=== PATIENT | female | born 1935 | race Caucasian/White ===

== ENCOUNTER 2016-07-18 17:20 | Emergency (ER) | payer MEDICARE, OTHER ==
[~2016-07-18 17:20] MED LIST: ASPIRIN PO; BACDS PO; CAFFEINE PO; CYANO1000T PO; DURICEF PO; EXELON1 EACH TOP; EXELON9.5T TOP; FISH OIL1200 MG PO; FOLIC PO; LOP25 PO; NAMENXR28 PO; PROTONIX PO; PYR200 PO; SIN25 PO; TOF50 PO; VITAMIN D31000 UNIT PO; [UNRECOGNIZED DRUG - OTHER] PO
[2016-07-19] MEDS ORDERED: K500 PO (17:25)
[2016-07-19] MEDS ORDERED: LOP25 PO (17:25)
[2016-07-19] MEDS ORDERED: EXELON1 EACH TOP (17:25)
[2016-07-19] MEDS ORDERED: SIN25 PO (17:25)
[2016-07-19] MEDS ORDERED: TOF50 PO (17:25)
[2016-07-19] MEDS ORDERED: CYANO1000T PO (17:26)
[2016-07-19] MEDS ORDERED: FISH OIL1200 MG PO (17:26)
[2016-07-19] MEDS ORDERED: HALF81 PO (17:26)
[2016-07-19] MEDS ORDERED: VITAMIN D31000 UNIT PO (17:26)
[2016-07-19] MEDS ORDERED: SEROQUEL50 MG PO (17:26)
[2016-07-19] MEDS ORDERED: FOLIC PO (17:27)
== END 2016-07-18 18:04 | disposition home or self-care (01) ==
LOC: ER 17:20
PROC: 0XQCXZZ Repair Left Elbow Region, External Approach (ICD-10-PCS; principal; 2016-07-18)
DX: S51.012A Laceration without foreign body of left elbow, initial encounter (principal); F03.90 Unspecified dementia, unspecified severity, without behavioral disturbance, psychotic disturbance, mood disturbance, and anxiety; Z88.0 Allergy status to penicillin; Z88.5 Allergy status to narcotic agent; Z88.7 Allergy status to serum and vaccine; Z79.899 Other long term (current) drug therapy; W01.0XXA Fall on same level from slipping, tripping and stumbling without subsequent striking against object, initial encounter
CPT/HCPCS: 73080-LT; 90471; 90714; 99283

== ENCOUNTER 2016-07-19 16:25 | Inpatient (IN) | payer MEDICARE, OTHER ==
--- NOTE | ~2016-07-19 | CN ---
Consultation Report [address] [place]. [address] NAME: DEVONTE ISIDRO DEZ : 34 STATUS : ADM IN PAT#: [id number] AGE: 81 ADM/REG DATE : 07/19/16 MR#: [id number] REPORT SERV DATE: 07/20/16 DICTATED BY: SCAR CEBALLOS III DATE: 07/20/16 REPORT STATUS : Draft TRANSCRIBED BY: MODL DATE: 07/20/16 CONSULTATION DATE OF CONSULTATION: 07/20/2016 HUNTER SKIN DIVER: Scar Ceballos M.D. CHIEF COMPLAINT: Left hip pain. HISTORY: The patient is an 81-year-old elderly female, who got up from her bed when she tripped over her wheelchair landing on her left side, she noted immediate pain, and was brought here to the emergency room at [facility], where x-rays revealed left intertrochanteric hip fracture. She is admitted to the hospitalist service and Orthopedic consultation is obtained for treatment of her left hip fracture. PAST MEDICAL HISTORY: Significant for high blood pressure, dementia, and Parkinson's. MEDICATIONS: Aspirin 81 mg. Please see the MAR. PHYSICAL EXAMINATION: GENERAL: She is alert and orient x3. VITAL SIGNS: Stable. HEENT: Normocephalic and atraumatic. Pupils are equal, round, and reactive to light and accommodation. Extraocular muscles are intact. NECK: Supple. CHEST: Clear. HEART: Regular rhythm. ABDOMEN: Benign, soft, and nontender. Positive bowel sounds. ORTHOPEDIC: Examination reveals marked tenderness to the left hip. She has some shortening external rotation of the left lower extremity. She has pain with minimal attempted internal and external rotation passively with the leg in extension. DIAGNOSTIC DATA: X-rays confirm a displaced left intertrochanteric hip fracture with some shortening. PLAN: Admission for open reduction and internal fixation of her left hip fracture with Sharon plate and screw system. I appreciate this consultation. We will proceed with surgery. KENDALL/TORI Consultation Report [address] [place]. [address] NAME: SANNADEVONTE DEZ : 34 STATUS : ADM IN PAT#: [id number] AGE: 81 ADM/REG DATE : 07/19/16 MR#: [id number] REPORT SERV DATE: 07/20/16 DICTATED BY: SCAR CEBALLOS III DATE: 07/20/16 REPORT STATUS : Draft TRANSCRIBED BY: MODL DATE: 07/20/16 Scar Ceballos III, M.D. / [id number] CC: DO Mariluz Kwon M.D.
--- NOTE | ~2016-07-19 | HP ---
History And Physical [place] [id number] [place]. [address] NAME: DEVONTE ISIDRO DEZ : 34 STATUS : ADM IN PAT#: [id number] AGE: 81 ADM/REG DATE : 07/19/16 MR#: [id number] REPORT SERV DATE: 07/20/16 DICTATED BY: CASE KELLER DATE: 07/19/16 REPORT STATUS : Draft TRANSCRIBED BY: MODL DATE: 07/19/16 DATE OF ADMISSION: 07/19/2016 IDENTIFYING DATA: An 81-year-old white female, whose PCP is Dr. Mariluz Evans; neurologist, Dr. Sanchez. CHIEF COMPLAINT: Fall. HISTORY OF PRESENT ILLNESS: This history of present illness is obtained by talking with the patient and with her daughter and son-in-law at the bedside as well as discussing it with the ER provider and looking at the ER notes. I also reviewed [employer] and [email or web address]. This patient has advanced dementia. She also has suspected Parkinson's and has had several years of progressive weakness and gait instability and tremor and multiple falls. She lives with a son and she had a fall yesterday, was brought to the emergency room. They found, on x-ray, no fractures in that left elbow, but she had a laceration and they put a suture in it and released her to go back home. According to the family, as best they can tell, she had tripped over something there. Then today, also got up, tripped over her wheelchair which she just never really used, fell to the ground. Son was there. They called paramedics and brought her to the emergency room. She was found to have fracture of the left hip and we were called to admit for orthopedics. REVIEW OF SYSTEMS: Apparently, she had a recent rash under her right breast, but they used some topical cream and it cleared. She has chronic incontinence. There has been no report, based on what the family tells me, of recent fever, cough, nasal congestion, sore throat, chest pain, shortness of breath, abdominal pain, nausea, vomiting, diarrhea, rectal bleeding, melena, or dysuria. ALLERGIES: SHE CLAIMS ALLERGY TO PENICILLIN, CODEINE, AND INFLUENZA VACCINATIONS. PAST MEDICAL HISTORY: Family denies any history of diabetes, asthma, COPD, heart disease, seizure, peptic ulcer, biliary tract disease, liver disease, chronic kidney disease, kidney stones, thyroid disease, cancer, or sleep apnea. She has very advanced dementia and suspected Parkinson's in the past. She does not recognize her family members, even her daughter. She knows that it is somebody that she should know, but cannot tell the name. She apparently still recognizes by name the son that she lives with. She cannot dress herself. She cannot bathe herself. She partially feeds herself. She has had hypertension, old stroke, she has had UTIs, she had an episode of urine retention when she was hospitalized here in 2013 and she had a Ahn catheter for a short time, went to rehab and apparently did not need it after that. She has had prior cellulitis in her leg. She has had a history of irritable bowel. History And Physical [address] [address] NAME: DEVONTE ISIDRO DEZ : 34 STATUS : ADM IN [facility]#: [id number] AGE: 81 ADM/REG DATE : 07/19/16 MR#: [id number] REPORT SERV DATE: 07/20/16 DICTATED BY: CASE KELLER DATE: 07/19/16 REPORT STATUS : Draft TRANSCRIBED BY: TORI DATE: 07/19/16 HOME MEDICATIONS: Aspirin 81 mg daily, Sinemet 25/100 a tablet b.i.d., Keflex 500 mg q.i.d. was started yesterday evening after she had that laceration to her left arm, vitamin D 1000 units daily, vitamin B12 1000 mcg daily with supper, folic acid 1 mg daily, Tofranil 50 mg twice a day which she has been taking chronically and it is unclear why, metoprolol 25 mg b.i.d., fish oil 1200 mg daily with supper, Seroquel 50 mg twice a day, and Exelon 13.3 mg patch at bedtime. PAST SURGICAL HISTORY: She has had a fractured left elbow repaired surgically last year, hysterectomy, shoulder surgery, and blepharoplasty. SOCIAL HISTORY: She has no tobacco or alcohol intake history. 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 She has a walker, but she does not use it. She lives at home with a son. FAMILY HISTORY: Mother had a melanoma, dad with stroke and brain tumor, siblings with alcoholic liver disease. DIAGNOSTIC DATA: EKG done today at 1750 reveals normal sinus rhythm, right bundle-branch block pattern, left anterior fascicular block, and possible old lateral infarct. This essentially looks identical to EKG of 10/05/2013. When I arrived at the chart, the ER had told me that she was in atrial fibrillation. There was, however, another patient's EKG stuck to her EKG and it did show atrial fibrillation, but it clearly had another person's name and date of on it, not this patient. Chest x-ray reveals shallow inspiratory size, grossly clear lung powell. Brain CT has been taken, Radiology has not read it yet. Hip films have been done, the radiologist has not read them, but it looks like a left hip fracture. White count is 16, hemoglobin 14, platelets 234,000. ProTime 14.1, INR 1.1, PTT 27.8. Sodium 143, potassium 4.4, chloride 111, CO2 is 29, BUN 10, creatinine 0.94, glucose 116, magnesium 2.3. Troponin less than 0.02. PHYSICAL EXAMINATION: VITAL SIGNS: Temperature 98, pulse 70, respirations 18, blood pressure 140/70, O2 saturation is 92% on 2 L. GENERAL: A well-developed, older female, who appears in no acute distress. HEENT: Head is atraumatic. Pupils are equal, round, and reactive to light. Extraocular motions are intact. No scleral icterus noted. Ear canals and TMs unremarkable bilaterally. No inflammatory changes noted on the ears externally. Nose, noninflamed externally. Septum midline. Nares patent. Mouth, moist. Good gag. No redness of the throat, gums, or lips. No teeth in her mouth at this time. NECK: Supple. No lymph node or thyroid enlargement. The carotids have good pulses. No bruits. LUNGS: Clear. Good air flow. No wheezes. No rhonchi. HEART: Regular rate and rhythm without murmur, gallop, click, or rub. ABDOMEN: Bowel sounds positive. Soft, nondistended, nontender. No masses. No organomegaly. EXTREMITIES: The left leg is slightly shortened. No actively inflamed skin other than she has laceration with suture in it on the olecranon area of the left elbow. NEUROLOGIC: She is alert. She is polite. She follows some very simple commands. She has History And Physical [place] [id number] [facility] [place]. [address] NAME: DEVONTE ISIDRO DEZ : 34 STATUS : ADM IN PAT#: [id number] AGE: 81 ADM/REG DATE : 07/19/16 MR#: [id number] REPORT SERV DATE: 07/20/16 DICTATED BY: CASE KELLER DATE: 07/19/16 REPORT STATUS : Draft TRANSCRIBED BY: MODSimran DATE: 07/19/16 no recall of any recent events. Her motor strength is 2/5 in her hands, 2/5 in her right leg. I did not check her left leg. No Babinski. No clonus. Cranial nerves 2 through 12 are grossly normal. ASSESSMENT: 1. Ongoing falling, now with left hip fracture today and yesterday with laceration to the left elbow. 2. Chronic severe dementia with progressive gait problems as well as inability to dress herself, inability to bathe herself, and with difficulty even feeding herself, and not recognizing most family members. 3. Possible Parkinson's. 4. Leukocytosis that could be due to the stress related to yesterday's fall, laceration, and trip to the ER, also but less likely due to occult infection. 5. She had a urinalysis today after a Ahn was placed. It was unremarkable other than large amount of blood. I think that is most likely due to the Ahn. 6. I see no sign of atrial fibrillation in this patient. That EKG was another patient's EKG and clearly had another patient's name on it. 7. See past medical history. PLAN: 1. Admit to the orthopedic floor. 2. Consultation to Orthopedics. 3. Ahn catheter is already in place for the short term. 4. Follow up her white count. 5. I believe she is medically cleared for hip fracture surgery if orthopedic feels is warranted. 6. I am going to stop her Tofranil because I think it increases her risk of falls. 7. Daughter and son-in-law updated at the bedside at this time. I have asked them to discuss with family about her code status. At this point in time, she is still full code. BEN/LML Case Keller M.D. / [id number] CC: DO Mariluz Kwon M.D. Abdul M.W. Eletr, M.D.
--- NOTE | ~2016-07-19 | DS ---
Discharge Summary [facility] [address] [place]. [address] NAME: DEVONTE ISIDRO DEZ : 34 STATUS : DIS IN PAT#: [id number] AGE: 81 ADM/REG DATE : 07/19/16 MR#: [id number] REPORT SERV DATE: 07/24/16 DICTATED BY: ANTHONY MONTANEZ DATE: 07/23/16 REPORT STATUS : Draft TRANSCRIBED BY: MODSimran DATE: 07/23/16 ADMISSION DATE: 07/19/2016 DISCHARGE DATE: 07/22/2016 REASON FOR ADMISSION: This is an 81-year-old female with advanced dementia and Parkinson's. She had a fall at home the day prior to admission, who came to the emergency room and on x- rays they found no fractures in the left elbow. She had laceration, they put a suture and released her to home. When she went back home, she tripped over something over her wheelchair and fell to the ground and was brought to the emergency room where she was found to have a left hip fracture. DISCHARGE DIAGNOSES: 1. Left hip fracture status post fall status post ORIF. 2. Recurrent falls. 3. Severe dementia. 4. Possible Parkinson's, on Sinemet. 5. Chronic incontinence. 6. Acute blood loss anemia. HOSPITAL COURSE: The patient had surgery performed by Orthopedic Surgery Dr. Scar Ceballos on 07/20/2016, for the left intertrochanteric hip fracture that was found on x-ray in the emergency room. He performed an ORIF of the left hip. The patient did well with the procedure. She did have some acute blood loss anemia but her hemoglobin was 9.1, did not require transfusion. Her dementia and confusion are at baseline. She is requiring half-way facility rehab per PT evaluation and was being discharged there. DISCHARGE CONDITION: Stable. DISCHARGE MEDICATIONS: 1. Tofranil 50 mg p.o. b.i.d. 2. Exelon patch 13.3 mg topically at bedtime. 3. Sinemet 25/100, one tablet b.i.d. 4. Lopressor 25 mg p.o. b.i.d. 5. Seroquel 50 mg p.o. b.i.d. 6. Aspirin 81 mg daily. 7. Fish oil 1200 mg p.o. daily. 8. Vitamin B12 1000 mcg p.o. daily. 9. Vitamin D3 a 1000 units p.o. with supper. 10.Folic acid 1 mg p.o. daily. 11.Eliquis 2.5 mg p.o. b.i.d. DISCHARGE PLAN: The patient is discharged to half-way facility. Follow up with Dr. Ceballos in two weeks and with primary care after rehab. Discharge Summary [address] [place]. [address] NAME: DEVONTE ISIDRO DEZ : 34 STATUS : DIS IN PAT#: [id number] AGE: 81 ADM/REG DATE : 07/19/16 MR#: [id number] REPORT SERV DATE: 07/24/16 DICTATED BY: ANTHONY MONTANEZ DATE: 07/23/16 REPORT STATUS : Draft TRANSCRIBED BY: TORI DATE: 07/23/16 ALONDRA/TORI Anthony Montanez APN / [id number] CC: Jen Alfonso M.D. Thomas Brown III, M.D.
--- NOTE | ~2016-07-19 | OP ---
Record Of Operation [facility] [address] [place]. [address] NAME: DEVONTE ISIDRO DEZ : 34 STATUS : ADM IN PAT#: [id number] AGE: 81 ADM/REG DATE : 07/19/16 MR#: [id number] REPORT SERV DATE: 07/20/16 DICTATED BY: SCAR CEBALLOS III DATE: 07/20/16 REPORT STATUS : Draft TRANSCRIBED BY: MODL DATE: 07/20/16 DATE OF PROCEDURE: 07/20/2016 PREOPERATIVE DIAGNOSIS: Left intertrochanteric hip fracture. POSTOPERATIVE DIAGNOSIS: Left intertrochanteric hip fracture. SURGICAL PROCEDURE PERFORMED: Open reduction and internal fixation of left intertrochanteric hip fracture, with a 4 hole 135 degree [place] side plate, and 85 mm lag screw. SURGEON: Scar Ceballos M.D. SENIOR [employer]AX MANAGER: Jolanta Hampton NP. ANESTHESIA: General. ANTIBIOTICS: Vancomycin 1 g. ESTIMATED BLOOD LOSS: 50 mL. CRYSTALLOID: 600 mL. COMPLICATIONS: None. DRAINS: None. PROCEDURE IN DETAIL: The patient was brought to the operating room, where general anesthesia was induced on the hospital bed. She was then transferred to the fracture table with general longitudinal traction applied to the left lower extremity with perineal post in proper position. The right leg in a well leg damon and upper extremities well padded. Left hip, thigh, and femur were entirely prepped and draped in the usual sterile fashion. Assuring good anesthesia and after surgical time-out to identify the left hip. A longitudinal incision was made from the inferior border the greater trochanter in line with the femur for approximately 5 inches. The iliotibial band was incised and the vastus lateralis fascia was incised posteriorly. The muscle belly was retracted anteriorly with a Holt retractor. A threaded K-wire was then placed at the head and neck with the use of C arm image. This was measured to an 85 mm length and 85 mm [place] reamer was used to drill the femoral neck and head. An 85 mm lag screw was then placed again confirming good position in both the AP and lateral planes with the C-arm image. A four-hole 135 degree sideplate was attached to the lateral cortex of the femur with self-tapping 4.5 cortical screws. Longitudinal traction was removed and the compression screw was added. Good reduction of the fracture was noted and good placement the hardware was noted with the C-arm image in both the AP and lateral planes. Thorough irrigation was carried out. The vastus lateral lateralis fascia was repaired with interrupted [id number] #1 Vicryl suture. The iliotibial band was repaired with interrupted #1 Vicryl suture. Subcutaneous tissue was closed 2-0 Vicryl and the skin was closed using pricilla. 30 mL of 0.5% Marcaine solution Record Of Operation [address] [address] NAME: DEVONTE ISIDRO DEZ : 34 STATUS : ADM IN PAT#: [id number] AGE: 81 ADM/REG DATE : 07/19/16 MR#: [id number] REPORT SERV DATE: 07/20/16 DICTATED BY: SCAR CEBALLOS III DATE: 07/20/16 REPORT STATUS : Draft TRANSCRIBED BY: TORI DATE: 07/20/16 was injected into the wound for postoperative pain control. The patient tolerated the procedure well and brought to recovery in satisfactory condition. There were no intraoperative, postoperative, or anesthetic complications. All instrument, needle, sponge, and lap counts were correct. TB/TORI Scar Ceballos III, M.D. / [id number] CC: DO Mariluz Kwon M.D.
[2016-07-19 16:52] LABS: BASOPHILS 0.2 %; BASOPHILS ABSOLUTE 0.03 10/3/uL (0.0-0.16); EOSINOPHILS 0.1 %; EOSINOPHILS ABSOLUTE 0.01 10/3/uL (0.0-0.53); HEMATOCRIT 41.8 % (36.0-48.0); IMMATURE GRANULOCYTES 0.4 %; IMMATURE GRANULOCYTES ABSOLUTE 0.07 10/3/uL (0.0-0.11); LYMPHOCYTES 12.2 %; LYMPHOCYTES ABSOLUTE 1.96 10/3/uL (0.67-4.30); MEAN CORPUS HGB CONC 33.5 g/dL (32.0-36.0); MEAN CORPUSCULAR HEMOGLOB 32.3 pg (26.0-34.0); MEAN CORPUSCULAR VOLUME 96.3 fL (80-100); MONOCYTES 4.6 %; MONOCYTES ABSOLUTE 0.73 10/3/uL (0.21-1.20); NEUTROPHILS 82.5 %; NEUTROPHILS ABSOLUTE 13.23 10/3/uL (2.02-8.40); PLATELET COUNT 234 10/3/uL (150-400); RBC DISTRIBUTION WIDTH 13.6 % (12.0-16.0); RED CELL COUNT 4.34 10/6/uL (4.0-5.6)
[2016-07-19 16:53] LABS: MANUAL DIFF NO %
[2016-07-19 17:03] LABS: INTERNATIONAL NORMAL RATI 1.1 UNITS (-); PROTIME (NOT ORD) 14.1 SEC (12.0-14.5)
[2016-07-19 17:04] LABS: PARTIAL THROMBO TIME 27.8 SEC (22.5-37.2)
[2016-07-19 17:09] LABS: CALCIUM, SERUM 8.8 MG/DL (8.5-10.4); CHEST PAIN PROFILE TAT 0 Hrs 21 Mins; CHLORIDE, SERUM 111 MMOL/L (96-112); CO2 (CARBON DIOXIDE) 29 MMOL/L (24-34); CREATININE 0.94 MG/DL (0.55-1.02); GFR AFRICAN AMERICAN 65 ML/MIN (>=60); GFR NON AFRICAN AMERICAN 56 ML/MIN (>=60); SODIUM, SERUM 143 MMOL/L (135-148); TROPONIN I <0.02 NG/ML (<0.05)
[2016-07-19 17:10] LABS: BUN (BLOOD UREA NITROGEN) 10 MG/DL (6-23); GLUCOSE, SERUM 116 MG/DL (60-99); POTASSIUM, SERUM 4.4 MMOL/L (3.5-5.3)
[2016-07-19] MEDS ORDERED: K500 PO (17:25)
[2016-07-19] MEDS ORDERED: SIN25 PO (17:25)
[2016-07-19] MEDS ORDERED: LOP25 PO (17:25)
[2016-07-19] MEDS ORDERED: TOF50 PO (17:25)
[2016-07-19] MEDS ORDERED: EXELON1 EACH TOP (17:25)
[2016-07-19] MEDS ORDERED: SEROQUEL50 MG PO (17:26)
[2016-07-19] MEDS ORDERED: FISH OIL1200 MG PO (17:26)
[2016-07-19] MEDS ORDERED: HALF81 PO (17:26)
[2016-07-19] MEDS ORDERED: VITAMIN D31000 UNIT PO (17:26)
[2016-07-19] MEDS ORDERED: CYANO1000T PO (17:26)
[2016-07-19] MEDS ORDERED: FOLIC PO (17:27)
[2016-07-19 19:03] LABS: ASCORBIC ACID (UR NOT ORDER) NEG (NEG); BILIRUBIN, URINE NEGATIVE (NEG); ER URINALYSIS TAT 0 Hrs 08 Mins; KETONE, URINE NEGATIVE (NEG); LEUKOCYTE ESTERASE(NOT OR NEG (NEG); NITRITE (URINE) NEG (NEG); WBC (NOT ORDERED) (RFLEX) 1 (0-5)
[2016-07-20 00:51] LABS: CHOL/HDL RATIO(NOT ORDER) 4.1 (0-5); CHOLESTEROL 172 MG/DL (< 200); HDL CHOLESTEROL 42 MG/DL (> 49); LDL CHOLESTEROL 95 MG/DL (< 130); NON-HDL CHOLESTEROL 130 MG/DL (< 160)
[2016-07-20 00:53] LABS: TRIGLYCERIDE 178 MG/DL (< 150)
[2016-07-20 04:52] LABS: BASOPHILS 0.1 %; BASOPHILS ABSOLUTE 0.01 10/3/uL (0.0-0.16); EOSINOPHILS 0.2 %; EOSINOPHILS ABSOLUTE 0.03 10/3/uL (0.0-0.53); HEMATOCRIT 38.7 % (36.0-48.0); HEMOGLOBIN 12.7 g/dL (12.0-16.0); IMMATURE GRANULOCYTES 0.3 %; IMMATURE GRANULOCYTES ABSOLUTE 0.04 10/3/uL (0.0-0.11); LYMPHOCYTES 19.5 %; LYMPHOCYTES ABSOLUTE 2.36 10/3/uL (0.67-4.30); MEAN CORPUS HGB CONC 32.8 g/dL (32.0-36.0); MEAN CORPUSCULAR HEMOGLOB 31.8 pg (26.0-34.0); MEAN PLATELET VOLUME 9.8 fL (9.2-13.0); MONOCYTES 9.5 %; MONOCYTES ABSOLUTE 1.15 10/3/uL (0.21-1.20); NEUTROPHILS 70.4 %; NEUTROPHILS ABSOLUTE 8.54 10/3/uL (2.02-8.40); PLATELET COUNT 214 10/3/uL (150-400); RBC DISTRIBUTION WIDTH 13.8 % (12.0-16.0); RED CELL COUNT 3.99 10/6/uL (4.0-5.6); WHITE BLOOD CELLS 12.1 10/3/uL (4.5-10.5)
[2016-07-20 04:55] LABS: MANUAL DIFF NO %
[2016-07-21 04:48] LABS: BASOPHILS 0.2 %; BASOPHILS ABSOLUTE 0.02 10/3/uL (0.0-0.16); EOSINOPHILS 0.2 %; EOSINOPHILS ABSOLUTE 0.02 10/3/uL (0.0-0.53); HEMOGLOBIN 10.8 g/dL (12.0-16.0); IMMATURE GRANULOCYTES 0.2 %; IMMATURE GRANULOCYTES ABSOLUTE 0.02 10/3/uL (0.0-0.11); LYMPHOCYTES 20.4 %; LYMPHOCYTES ABSOLUTE 2.08 10/3/uL (0.67-4.30); MEAN CORPUS HGB CONC 32.6 g/dL (32.0-36.0); MEAN CORPUSCULAR HEMOGLOB 31.9 pg (26.0-34.0); MEAN CORPUSCULAR VOLUME 97.6 fL (80-100); MEAN PLATELET VOLUME 9.8 fL (9.2-13.0); MONOCYTES 12.3 %; MONOCYTES ABSOLUTE 1.26 10/3/uL (0.21-1.20); NEUTROPHILS 66.7 %; NEUTROPHILS ABSOLUTE 6.81 10/3/uL (2.02-8.40); PLATELET COUNT 174 10/3/uL (150-400); RBC DISTRIBUTION WIDTH 13.5 % (12.0-16.0); RED CELL COUNT 3.39 10/6/uL (4.0-5.6); WHITE BLOOD CELLS 10.2 10/3/uL (4.5-10.5)
[2016-07-21 04:51] LABS: HEMATOCRIT 33.1 % (36.0-48.0); MANUAL DIFF NO %
[2016-07-21 05:07] LABS: BUN (BLOOD UREA NITROGEN) 11 MG/DL (6-23); CALCIUM, SERUM 8.3 MG/DL (8.5-10.4); CHLORIDE, SERUM 104 MMOL/L (96-112); CO2 (CARBON DIOXIDE) 32 MMOL/L (24-34); CREATININE 0.95 MG/DL (0.55-1.02); GFR AFRICAN AMERICAN 65 ML/MIN (>=60); GFR NON AFRICAN AMERICAN 56 ML/MIN (>=60); GLUCOSE, SERUM 139 MG/DL (60-99); POTASSIUM, SERUM 4.1 MMOL/L (3.5-5.3); SODIUM, SERUM 139 MMOL/L (135-148)
[2016-07-21 05:12] LABS: ULTRASENSITIVE TSH 0.823 MCIU/ML (0.358-3.740)
[2016-07-22 05:04] LABS: BASOPHILS 0.3 %; BASOPHILS ABSOLUTE 0.02 10/3/uL (0.0-0.16); EOSINOPHILS 0.1 %; EOSINOPHILS ABSOLUTE 0.01 10/3/uL (0.0-0.53); HEMOGLOBIN 9.1 g/dL (12.0-16.0); IMMATURE GRANULOCYTES 0.4 %; IMMATURE GRANULOCYTES ABSOLUTE 0.03 10/3/uL (0.0-0.11); LYMPHOCYTES ABSOLUTE 1.57 10/3/uL (0.67-4.30); MEAN CORPUS HGB CONC 33.6 g/dL (32.0-36.0); MEAN CORPUSCULAR HEMOGLOB 32.2 pg (26.0-34.0); MEAN CORPUSCULAR VOLUME 95.8 fL (80-100); MEAN PLATELET VOLUME 10.1 fL (9.2-13.0); MONOCYTES 9.7 %; MONOCYTES ABSOLUTE 0.76 10/3/uL (0.21-1.20); NEUTROPHILS 69.5 %; NEUTROPHILS ABSOLUTE 5.47 10/3/uL (2.02-8.40); PLATELET COUNT 146 10/3/uL (150-400); RBC DISTRIBUTION WIDTH 13.6 % (12.0-16.0); RED CELL COUNT 2.83 10/6/uL (4.0-5.6); WHITE BLOOD CELLS 7.9 10/3/uL (4.5-10.5)
[2016-07-22 05:09] LABS: HEMATOCRIT 27.1 % (36.0-48.0); MANUAL DIFF NO %
[2016-07-22 05:20] LABS: BUN (BLOOD UREA NITROGEN) 14 MG/DL (6-23); CALCIUM, SERUM 8.1 MG/DL (8.5-10.4); CHLORIDE, SERUM 106 MMOL/L (96-112); CREATININE 0.91 MG/DL (0.55-1.02); GFR AFRICAN AMERICAN 68 ML/MIN (>=60); GFR NON AFRICAN AMERICAN 59 ML/MIN (>=60); POTASSIUM, SERUM 4.1 MMOL/L (3.5-5.3); SODIUM, SERUM 140 MMOL/L (135-148)
[2016-07-22 05:27] LABS: CO2 (CARBON DIOXIDE) 25 MMOL/L (24-34); GLUCOSE, SERUM 107 MG/DL (60-99)
== END 2016-07-22 21:09 | DRG 481 ==
LOC: ER 16:25 → 1SO 18:26 → 3SO 19:51
PROVIDERS: Internal Medicine; Nurse Practitioner Family; Orthopaedic Surgery; Physician Assistant Medical
PROC: 0QS904Z Reposition Left Femoral Shaft with Internal Fixation Device, Open Approach (ICD-10-PCS; principal; 2016-07-19)
DX: S72.002A Fracture of unspecified part of neck of left femur, initial encounter for closed fracture (principal); D62 Acute posthemorrhagic anemia; F03.90 Unspecified dementia, unspecified severity, without behavioral disturbance, psychotic disturbance, mood disturbance, and anxiety; G20 Parkinson's disease; F02.80 Dementia in other diseases classified elsewhere, unspecified severity, without behavioral disturbance, psychotic disturbance, mood disturbance, and anxiety; W18.30XA Fall on same level, unspecified, initial encounter; S51.012A Laceration without foreign body of left elbow, initial encounter; Z88.0 Allergy status to penicillin; Z88.5 Allergy status to narcotic agent; Z88.7 Allergy status to serum and vaccine; Z79.899 Other long term (current) drug therapy
CPT/HCPCS: 36415; 70450; 71010; 73080-LT; 73502-LT; 76000; 80048; 80061; 81001; 82330; 82803; 82947; 83735; 84132; 84295; 84443; 84484; 85014; 85025; 85610; 85730; 86850; 86900; 86901; 86920; 87040; 93005; 94640; 94667; 97110-GP; 97162-GP; 97165-GO; 97530-GP; 99285; A9270-GY; C1713; G8978-CN-GP; G8979-CL-GP; G8987-CL-GO; G8988-CK-GO; J0690; J1885; J2370; J2405; J2710; J3010; J3370

== ENCOUNTER 2016-09-01 06:36 | Emergency (ER) | payer MEDICARE, OTHER ==
[2016-09-01 04:40] LABS: BASOPHILS 0.2 %; BASOPHILS ABSOLUTE 0.02 10/3/uL (0.0-0.16); EOSINOPHILS 0.4 %; EOSINOPHILS ABSOLUTE 0.04 10/3/uL (0.0-0.53); IMMATURE GRANULOCYTES 0.4 %; IMMATURE GRANULOCYTES ABSOLUTE 0.04 10/3/uL (0.0-0.11); LYMPHOCYTES ABSOLUTE 2.47 10/3/uL (0.67-4.30); MEAN CORPUSCULAR HEMOGLOB 30.7 pg (26.0-34.0); MEAN CORPUSCULAR VOLUME 96.4 fL (80-100); MEAN PLATELET VOLUME 9.5 fL (9.2-13.0); MONOCYTES 9.3 %; MONOCYTES ABSOLUTE 0.92 10/3/uL (0.21-1.20); NEUTROPHILS 64.7 %; RBC DISTRIBUTION WIDTH 14.4 % (12.0-16.0); WHITE BLOOD CELLS 9.9 10/3/uL (4.5-10.5)
[2016-09-01 04:41] LABS: HEMATOCRIT 37.3 % (36.0-48.0); HEMOGLOBIN 11.9 g/dL (12.0-16.0); MANUAL DIFF NO %; MEAN CORPUS HGB CONC 31.9 g/dL (32.0-36.0); PLATELET COUNT 210 10/3/uL (150-400); RED CELL COUNT 3.87 10/6/uL (4.0-5.6)
[2016-09-01 04:51] LABS: INTERNATIONAL NORMAL RATI 1.1 UNITS (-); PARTIAL THROMBO TIME 30.3 SEC (22.5-37.2); PROTIME (NOT ORD) 14.3 SEC (12.0-14.5)
[2016-09-01 04:55] LABS: CHLORIDE, SERUM 106 MMOL/L (96-112); CREATININE 0.91 MG/DL (0.55-1.02); GFR AFRICAN AMERICAN 68 ML/MIN (>=60); GFR NON AFRICAN AMERICAN 59 ML/MIN (>=60); GLUCOSE, SERUM 111 MG/DL (60-99); POTASSIUM, SERUM 4.3 MMOL/L (3.5-5.3); SGOT(AST) 17 U/L (5-40); SGPT(ALT) 9 U/L (5-65); SODIUM, SERUM 141 MMOL/L (135-148); TOTAL BILIRUBIN 0.3 MG/DL (0-1.2); TOTAL PROTEIN 6.5 G/DL (6.0-8.5)
[2016-09-01 04:57] LABS: A/G RATIO 0.9 (0.7-1.9); ALBUMIN 3.1 G/DL (3.5-5.0); ALKALINE PHOSPHATASE 133 U/L (45-117); BUN (BLOOD UREA NITROGEN) 7 MG/DL (6-23); CALCIUM, SERUM 9.4 MG/DL (8.5-10.4); CO2 (CARBON DIOXIDE) 30 MMOL/L (24-34); GLOBULIN 3.4 G/DL (2.5-4.1)
[2016-09-01 05:22] LABS: ASCORBIC ACID (UR NOT ORDER) NEG (NEG); BILIRUBIN, URINE NEGATIVE (NEG); ER URINALYSIS TAT 0 Hrs 00 Mins; KETONE, URINE NEGATIVE (NEG); LEUKOCYTE ESTERASE(NOT OR MOD (NEG); NITRITE (URINE) NEG (NEG); WBC (NOT ORDERED) (RFLEX) 27 (0-5)
[~2016-09-01 06:36] MED LIST changes: +HALF81 PO; +K500 PO; +SEROQUEL50 MG PO
== END 2016-09-01 09:02 | disposition home or self-care (01) ==
LOC: ER 06:36
PROVIDERS: Specialist
DX: N39.0 Urinary tract infection, site not specified (principal); Z86.73 Personal history of transient ischemic attack (TIA), and cerebral infarction without residual deficits; I10 Essential (primary) hypertension; F03.90 Unspecified dementia, unspecified severity, without behavioral disturbance, psychotic disturbance, mood disturbance, and anxiety; W19.XXXA Unspecified fall, initial encounter; Z88.0 Allergy status to penicillin; Z88.5 Allergy status to narcotic agent; Z88.7 Allergy status to serum and vaccine; Z79.899 Other long term (current) drug therapy; Z79.82 Long term (current) use of aspirin
CPT/HCPCS: 36415; 70450; 72125; 72170; 80053; 81001; 85025; 85610; 85730; 86850; 86900; 86901; 87077; 87086; 87186; 96374; 99285